=== PATIENT | female | born 1985 | race Two or more races ===

== ENCOUNTER 2022-01-02 12:10 | Emergency (ER) | payer MEDICAID ==
[~2022-01-02] VITALS: Ht 147.3 cm; Wt 63.7 kg
[2022-01-02 12:22] VITALS: BP 115/71
[2022-01-02] MEDS ORDERED: NACL 0.9% 1,000 ML IV SCH (12:50)
--- NOTE | 2022-01-02 13:00 | NUR ---
36/F C/O GENERALIZED LEFT SIDED ABD PAIN RADIATING TO LOW BACK ACCOMPANIED BY COUGH AND CONGESTION. PT REPORTS 7WKS AT [facility] 11/11/21 [facility]: DENIES
[2022-01-02 13:33] LABS: APPEARANCE,URINE SL CLOUDY (CLEAR); BILIRUBIN,URINE NEGATIVE (NEGATIVE); BLOOD, URINE TRACE-I (NEGATIVE); COLOR,URINE YELLOW (YELLOW); LEUKOCYTE ESTERASE ,URINE NEGATIVE (NEGATIVE); NITRITE, URINE POSITIVE (NEGATIVE); PH,URINE 7.5 (5.0-9.0); UGLUCOSE NEGATIVE (NEGATIVE)
--- NOTE | 2022-01-02 13:36 | NUR ---
COVID AND FLU SWAB COLLECTED AND SENT TO LAB
--- NOTE | 2022-01-02 13:40 | NUR ---
US AT BEDSIDE
[2022-01-02 13:46] LABS: RBC,URINE 0-5 /HPF (0-5); URINE AMORPHOUS URATE 2+ /HPF (None Seen); WBC,URINE 0-5 /HPF (0-5)
[2022-01-02 14:03] LABS: PROTHROMBIN TIME 10.9 secs (10.8-13.4)
[2022-01-02 14:19] LABS: ALBUMIN 3.7 g/dL (3.4-5.0); ANION GAP 13.5 (8-16); CARBON DIOXIDE 25.9 mmol/L (21-32); CREATININE 0.6 mg/dL (0.6-1.3); POTASSIUM 3.4 mmol/L (3.5-5.1); TOTAL BILIRUBIN 0.4 mg/dL (0.0-1.0)
[2022-01-02 14:26] LABS: BASOPHILS % (AUTO) 0.3 % (0.0-2.0); EOSINOPHILS % (AUTO) 0.4 % (0.0-4.0); HEMATOCRIT 41.4 % (36-48); HEMOGLOBIN 14.1 g/dL (12.0-16.0); LYMPHOCYTES # (AUTO) 0.7 K/uL (2.5-16.5); LYMPHOCYTES % (AUTO) 11.3 % (20.5-51.1); MEAN CORPUSCULAR HEMOGLOBIN 32 pg (27-31); MEAN CORPUSCULAR HGB CONC 34 g/dL (33-37); MEAN CORPUSCULAR VOLUME 93.1 fL (80-94); MONOCYTES # (AUTO) 0.4 K/uL (0.8-1.0); MONOCYTES % (AUTO) 5.7 % (1.7-9.3); NEUTROPHILS # (AUTO) 5.3 K/uL (1.8-7.7); NEUTROPHILS % (AUTO) 82.3 % (42.2-75.2); PLATELET COUNT (AUTO) 204 K/uL (140-450); RED BLOOD CELL COUNT(AUTO) 4.44 MIL/uL (4.20-5.40); RED CELL DISTRIBUTION WIDTH 12.8 % (11.6-13.7); WHITE BLOOD COUNT (AUTO) 6.4 K/uL (4.8-10.8)
[2022-01-02] MEDS ORDERED: ACETAMINOPHEN 325 MG TAB PO ONE (16:05)
[2022-01-02] MEDS ORDERED: CEPH-588 PO (16:07)
[2022-01-02 16:38] VITALS: BP 125/77
== END 2022-01-02 16:38 | disposition home or self-care (01) ==
LOC: MED 12:10
DX: O26.891 Other specified pregnancy related conditions, first trimester (principal); Z20.822 Contact with and (suspected) exposure to COVID-19; R10.9 Unspecified abdominal pain; M54.50 Low back pain, unspecified; R05.9 Cough, unspecified; Z3A.01 Less than 8 weeks gestation of pregnancy
CPT/HCPCS: 36415; 71045; 76700; 76801; 80053; 81001; 81025; 82550; 83605; 85025; 85610; 85730; 87040; 87086; 87426; 87804; 96360; 99285; Q0092